=== PATIENT | female | born 1960 | race Caucasian/White ===

== ENCOUNTER 2018-06-08 15:37 | Emergency (ER) | payer MEDICARE, MEDICAID ==
[~2018-06-08] VITALS: Ht 167.6 cm; Wt 81.8 kg
[~2018-06-08 15:37] MED LIST: ALPR-624 PO; ASPI-529 PO; CHLO25CA10 PO; CIME800T PO; DIPH-423 PO; FLUO20CA39 PO; LAMO5TAB3 PO; METO100T7 PO; ONDA4TAB6 PO; RISP0.5T74 PO
[2018-06-08] MEDS ORDERED: ketorolac trometh. 30mg/ml inj. IV ONE (17:30)
[2018-06-08] MEDS ORDERED: normal saline 1000ML IV soln IVB ONE (17:30)
[2018-06-08] MEDS ORDERED: dexamethasone sod phosphate 10mg/ml inj IV STA (17:30)
[2018-06-08] MEDS ORDERED: LORazepam 2 mg/ml vial IV ONE (17:30)
[2018-06-08] MEDS ORDERED: metoclopramide 5 mg/ml inj IV ONE (17:30)
[2018-06-08 18:25] VITALS: BP 123/74
[2018-06-08] MEDS ORDERED: SUMA100T PO (18:25)
== END 2018-06-08 18:28 | disposition home or self-care (01) ==
LOC: ER 15:37
DX: G43.909 Migraine, unspecified, not intractable, without status migrainosus (principal); F12.90 Cannabis use, unspecified, uncomplicated; F15.90 Other stimulant use, unspecified, uncomplicated; F11.90 Opioid use, unspecified, uncomplicated; F14.90 Cocaine use, unspecified, uncomplicated; Z88.5 Allergy status to narcotic agent; Z79.82 Long term (current) use of aspirin; Z79.899 Other long term (current) drug therapy
CPT/HCPCS: 96374; 96375; 99284; J1100; J1885; J2060; J2765; J7030

== ENCOUNTER 2020-12-15 15:01 | Emergency (ER) | payer MEDICARE, MEDICAID ==
[~2020-12-15] VITALS: Ht 167.6 cm; Wt 84.7 kg
[2020-12-15 15:34] VITALS: BP 115/71
[2020-12-15] MEDS ORDERED: ketorolac tromethamine 15mg/ml inj. IM ONE (16:25)
[2020-12-15] MEDS ORDERED: amox tr/potassium clavulanate 875/125mg TAB PO ONE (16:25)
[2020-12-15] MEDS ORDERED: AMOX-117 PO (16:26)
[2020-12-15] MEDS ORDERED: TETanus/Pertussis (Acell)/Diphther VAC/PF (Tdap-Adult) 0.5ml syringe IMVAC ONE (16:45)
== END 2020-12-15 17:18 | disposition home or self-care (01) ==
LOC: ER 15:02
DX: S51.832A Puncture wound without foreign body of left forearm, initial encounter (principal); F12.90 Cannabis use, unspecified, uncomplicated; F15.90 Other stimulant use, unspecified, uncomplicated; F11.90 Opioid use, unspecified, uncomplicated; F17.200 Nicotine dependence, unspecified, uncomplicated; Z87.440 Personal history of urinary (tract) infections; Z86.19 Personal history of other infectious and parasitic diseases; Z72.89 Other problems related to lifestyle; W55.01XA Bitten by cat, initial encounter; Y93.89 Activity, other specified; Y92.89 Other specified places as the place of occurrence of the external cause; Y99.8 Other external cause status
CPT/HCPCS: 90471; 90715; 96372; 99284; J1885

== ENCOUNTER 2023-06-03 13:42 | Emergency (ER) | payer MEDICARE, MEDICAID ==
[~2023-06-03] VITALS: Ht 167.6 cm; Wt 79.0 kg
[2023-06-03 14:05] VITALS: TEMP 97.6
[2023-06-03] MEDS ORDERED: bupivacaine 0.25%/epinephrine 1:200,000 inj (contains preserv. MDV) IJ ONE (15:05)
[2023-06-03] MEDS ORDERED: BUPIVAcaine 0.5% W/EPI /PF 30ml vial IJ ONE (15:15)
[2023-06-03] MEDS ORDERED: morphine 2 MG/ML inj. syringe IM ONE (15:25)
[2023-06-03] MEDS ORDERED: ondansetron 4mg rapidly disintigrating tab PO ONE (15:25)
[2023-06-03] MEDS ORDERED: PER5325T PO (16:29)
[2023-06-03 16:55] VITALS: BP 126/82; PULSE 70; RESP 18; O2SAT 98
== END 2023-06-03 20:00 | disposition home or self-care (01) ==
LOC: ER 13:42
DX: S52.592A Other fractures of lower end of left radius, initial encounter for closed fracture (principal); S52.612A Displaced fracture of left ulna styloid process, initial encounter for closed fracture; W18.39XA Other fall on same level, initial encounter; Y93.89 Activity, other specified; Y92.89 Other specified places as the place of occurrence of the external cause; Y99.8 Other external cause status
CPT/HCPCS: 25605; 73090; 73100; 73110; 96372; 99284; J2270

== ENCOUNTER 2023-06-14 08:57 | Day surgery (SDC) | payer MEDICARE, MEDICAID ==
[2023-06-11 14:43] LABS: BASOPHILS % (AUTO) 0.6 % (0-1); EOSINOPHILS # (AUTO) 0.1 X10'3 (0-0.9); EOSINOPHILS % (AUTO) 1.4 % (0-6); HEMATOCRIT 45.1 % (35.0-45.0); HEMOGLOBIN 14.8 g/dl (12.0-16.0); LYMPHOCYTES % (AUTO) 23.6 % (21-51); MEAN CORPUSCULAR HEMOGLOBIN 30.2 PG (27.0-31.0); MEAN CORPUSCULAR HGB CONC 32.9 g/dL (33.0-36.5); MEAN CORPUSCULAR VOLUME 91.7 FL (78-98); MEAN PLATELET VOLUME 7.5 FL (7.4-10.4); MONOCYTES # (AUTO) 0.6 X10'3 (0-0.9); MONOCYTES % (AUTO) 7.2 % (2-12); NEUTROPHILS # (AUTO) 5.7 X10'3 (1.8-7.7); NEUTROPHILS % (AUTO) 67.2 % (42-75); PLATELET COUNT 318 X10'3 (140-440); RED BLOOD COUNT 4.91 X10'6 (4.20-5.60); RED CELL DISTRIBUTION WIDTH 13.9 % (11.5-14.5); WHITE BLOOD COUNT 8.5 X10'3 (4.5-11.0)
[2023-06-11 15:02] LABS: ALANINE AMINOTRANSFERASE 15 U/L (12-78); ALBUMIN 4.1 G/DL (3.4-5.0); ALBUMIN/GLOBULIN RATIO 1.2 (1.1-1.5); ALKALINE PHOSPHATASE 78 IU/L (46-116); ANION GAP 11 (8-16); ASPARTATE AMINO TRANSFERASE 17 U/L (10-37); BILIRUBIN,TOTAL 0.5 MG/DL (0.1-1.0); BLOOD UREA NITROGEN 19 MG/DL (7-18); BUN/CREATININE RATIO 16.1 (10.0-20.0); CALCIUM 9.7 MG/DL (8.5-10.1); CHLORIDE 107 MMOL/L (99-107); CREATININE 1.18 MG/DL (0.40-0.90); GLUCOSE 94 MG/DL (70-104); POTASSIUM 4.2 MMOL/L (3.5-5.1); SODIUM 138 MMOL/L (135-145); TOTAL CARBON DIOXIDE 19.7 MMOL/L (24-32); TOTAL PROTEIN 7.6 G/DL (6.4-8.2); eGFR 46 ML/MIN
[~2023-06-14] VITALS: Ht 167.6 cm; Wt 81.4 kg
[2023-06-14] VITALS (14 sets, daily range): BP systolic 99–127; BP diastolic 53–80; PULSE 54–69; RESP 11–18; TEMP 98.1; O2SAT 94–99
[~2023-06-14 08:57] MED LIST changes: -ALPR-624 PO; -ASPI-529 PO; +CELE-193 PO; -CHLO25CA10 PO; -CIME800T PO; -DIPH-423 PO; +FEXO-353 PO; -METO100T7 PO; -ONDA4TAB6 PO; -RISP0.5T74 PO; +TOP100T PO; +albuterol 2.5 MG/3 ML nebule NEB ONE; +cefazolin 2gm/D5W 100mL 100 ML IV ONE; +famotidine 20mg tablet PO ONE; +ringers solution, lacted 1,000 ML IV SCH
[2023-06-14] MEDS ORDERED: BUPIVAcaine/PF 2.5mg/ml (0.25%) 10ml vial ONE (09:15)
[2023-06-14] MEDS ORDERED: cloNIDine hcl/PF 100mcg/ml inj ONE (10:11)
[2023-06-14] MEDS ORDERED: morphine 4 MG/ML inj SYRINge IV PRN (10:15)
[2023-06-14] MEDS ORDERED: ondansetron/PF 4mg/2ml inj IV PRN (10:15)
[2023-06-14] MEDS ORDERED: labetalol 20mg/4ml (5mg/ml) syringe IV PRN (10:15)
[2023-06-14] MEDS ORDERED: hydrALAZINE 20mg/ml inj. IV PRN (10:15)
[2023-06-14] MEDS ORDERED: acetaminophen 1,000mg/100ml IV 100 ML IV ONE (10:15)
[2023-06-14] MEDS ORDERED: proCHLORperazine 10 MG/2 ml inj IV PRN (10:15)
[2023-06-14] MEDS ORDERED: ringers solution, lacted 1,000 ML IV SCH (10:15)
[2023-06-14] MEDS ORDERED: meperidine/PF 25mg/ml syringe IV PRN (10:15)
[2023-06-14] MEDS ORDERED: morphine 2 MG/ML inj. syringe IV PRN (10:15)
[2023-06-14] MEDS ORDERED: ketorolac trometh. 30mg/ml inj. IV ONE (10:15)
[2023-06-14] MEDS ORDERED: HYDROmorphone/PF 0.2 MG/ML SYRINGE IV PRN ×2 (10:15)
[2023-06-14] MEDS ORDERED: midazolam 1 mg/ML 2ml injection ONE (10:17)
[2023-06-14] MEDS ORDERED: fentaNYL/PF 50MCG/1 ML 2ML syringe ONE (10:20)
[2023-06-14] MEDS ORDERED: sevoflurane 250ml liquid IH ONE (10:28)
[2023-06-14] MEDS ORDERED: dexamethasone sod phosphate 4mg/ml inj. ONE (11:10)
[2023-06-14] MEDS ORDERED: ondansetron/PF 4mg/2ml inj ONE (11:10)
[2023-06-14] MEDS ORDERED: propofol inj 20 ML IV ONE (11:10)
[2023-06-14] MEDS ORDERED: LIDOcaine 2% (20mg/ml) 5ml vial ONE (11:10)
[2023-06-14] MEDS ORDERED: ROPIVAcaine 0.5% (5mg/ml) 30ml vial ONE (11:10)
== END 2023-06-14 14:02 | disposition home or self-care (01) ==
LOC: PAS 08:57
PROVIDERS: ATTEND Orthopaedic Surgery Hand Surgery
DX: S52.572A Other intraarticular fracture of lower end of left radius, initial encounter for closed fracture (principal); F31.9 Bipolar disorder, unspecified; G43.909 Migraine, unspecified, not intractable, without status migrainosus; F41.9 Anxiety disorder, unspecified; F17.210 Nicotine dependence, cigarettes, uncomplicated; G89.18 Other acute postprocedural pain; Z88.8 Allergy status to other drugs, medicaments and biological substances; Z79.899 Other long term (current) drug therapy; Z98.890 Other specified postprocedural states; Z86.19 Personal history of other infectious and parasitic diseases; Z85.828 Personal history of other malignant neoplasm of skin; Z83.3 Family history of diabetes mellitus; W19.XXXA Unspecified fall, initial encounter; Y93.89 Activity, other specified; Y92.098 Other place in other non-institutional residence as the place of occurrence of the external cause; Y99.8 Other external cause status
CPT/HCPCS: 25609; 36415; 64417; 80053; 82948; 85025; 93005; C1713; J0690; J0735; J1100; J2250; J2405; J2704; J2795; J3010; J3490; J7030; J7120; Z7506; Z7508; Z7512; A4215; A4565; A4618; A6449; A7000

== ENCOUNTER 2023-08-08 15:23 | Emergency (ER) | payer MEDICARE, MEDICAID ==
[~2023-08-08] VITALS: Ht 167.6 cm; Wt 79.3 kg
[~2023-08-08 15:23] MED LIST changes: -albuterol 2.5 MG/3 ML nebule NEB ONE; -cefazolin 2gm/D5W 100mL 100 ML IV ONE; -famotidine 20mg tablet PO ONE; -ringers solution, lacted 1,000 ML IV SCH
[2023-08-08 15:50] VITALS: TEMP 99.3
[2023-08-08] MEDS: normal saline 1000ml 1,000 ML IV ONE (19:04)
[2023-08-08] MEDS: ondansetron/PF 4mg/2ml inj IV ONE (19:04)
[2023-08-08] MEDS: LIDOcaine 1% W/epiNEPHrine 1:100,000 20ml vial SQ ONE (19:06)
[2023-08-08] MEDS: SUMAtriptan 25 MG tablet PO ONE ×2 (19:06→22:42)
[2023-08-08 19:51] LABS: BASOPHILS % (AUTO) 0.2 % (0-1); EOSINOPHILS % (AUTO) 0.1 % (0-6); HEMATOCRIT 39.5 % (35.0-45.0); HEMOGLOBIN 13.5 g/dl (12.0-16.0); LYMPHOCYTES # (AUTO) 0.6 X10'3 (1.1-4.8); LYMPHOCYTES % (AUTO) 3.4 % (21-51); MEAN CORPUSCULAR HEMOGLOBIN 31.2 PG (27.0-31.0); MEAN CORPUSCULAR HGB CONC 34.1 g/dL (33.0-36.5); MEAN CORPUSCULAR VOLUME 91.4 FL (78-98); MEAN PLATELET VOLUME 7.8 FL (7.4-10.4); MONOCYTES # (AUTO) 0.9 X10'3 (0-0.9); MONOCYTES % (AUTO) 4.6 % (2-12); NEUTROPHILS # (AUTO) 17.3 X10'3 (1.8-7.7); NEUTROPHILS % (AUTO) 91.7 % (42-75); PLATELET COUNT 267 X10'3 (140-440); RED BLOOD COUNT 4.32 X10'6 (4.20-5.60); RED CELL DISTRIBUTION WIDTH 13.8 % (11.5-14.5); WHITE BLOOD COUNT 18.9 X10'3 (4.5-11.0)
[2023-08-08 19:59] LABS: ALBUMIN 3.1 G/DL (3.4-5.0); ANION GAP 12 (8-16); BLOOD UREA NITROGEN 18 MG/DL (7-18); BUN/CREATININE RATIO 20.5 (10.0-20.0); CALCIUM 9.1 MG/DL (8.5-10.1); CHLORIDE 107 MMOL/L (99-107); CREATININE 0.88 MG/DL (0.40-0.90); GLUCOSE 132 MG/DL (70-104); LIPASE 46 U/L (16-77); POTASSIUM 3.8 MMOL/L (3.5-5.1); SODIUM 140 MMOL/L (135-145); TOTAL CARBON DIOXIDE 20.7 MMOL/L (24-32); eCRCL 62 ML/MIN; eGFR 65 ML/MIN
[2023-08-08] MEDS: amox tr/potassium clavulanate 875/125mg TAB PO ONE (23:03)
[2023-08-08 23:18] LABS: BILIRUBIN,URINE NEGATIVE (Neg); CLARITY,URINE CLEAR (Clear); COLOR,URINE YELLOW (Yellow); GLUCOSE, URINE NEGATIVE (Neg); KETONES,URINE TRACE mg/dl (Neg); LEUKOCYTE ESTERASE ,URINE NEGATIVE (Neg); NITRITES, URINE NEGATIVE (Neg); OCCULT BLOOD,URINE TRACE-INTACT (Neg); PROTEIN,URINE NEGATIVE (Neg); UROBILINOGEN,URINE 0.2 E.U/dL (0.2-1.0)
[2023-08-08 23:27] LABS: UA COLLECTION TYPE CLN CATCH MIDSTREAM
[2023-08-08 23:34] LABS: BACTERIA,URINE NONE SEEN /HPF (Neg); MUCUS STRANDS NONE SEEN /LPF (Neg); RBC,URINE 0-2 /HPF (0-2); SQUAMOUS EPITHELIAL CELL,UR FEW /LPF (FEW); STARCH,URINE FEW /HPF (NEGATIVE); WBC,URINE 0-4 /HPF (0-4)
[2023-08-08] MEDS ORDERED: AMOX-117 PO (23:38)
[2023-08-08] MEDS ORDERED: DOXY-457 PO (23:38)
[2023-08-09 00:12] VITALS: BP 122/76; PULSE 73; RESP 16; O2SAT 99
== END 2023-08-09 00:15 | disposition home or self-care (01) ==
LOC: ER 15:24
DX: L02.31 Cutaneous abscess of buttock (principal); L03.317 Cellulitis of buttock; L03.314 Cellulitis of groin; F31.9 Bipolar disorder, unspecified; F12.90 Cannabis use, unspecified, uncomplicated; F15.90 Other stimulant use, unspecified, uncomplicated; Z88.8 Allergy status to other drugs, medicaments and biological substances; Z79.2 Long term (current) use of antibiotics; Z79.899 Other long term (current) drug therapy
CPT/HCPCS: 36415; 71045; 80048; 81001; 83605; 83690; 85025; 87040; 96361; 96374; 99284; J2405; J7030; C1758

== ENCOUNTER 2024-01-16 11:26 | Emergency (ER) | payer MEDICARE, MEDICAID ==
[~2024-01-16] VITALS: Ht 167.6 cm; Wt 75.0 kg
[2024-01-16 12:31] LABS: BILIRUBIN,URINE NEGATIVE (Neg); CLARITY,URINE CLOUDY (Clear); COLOR,URINE YELLOW (Yellow); GLUCOSE, URINE NEGATIVE (Neg); KETONES,URINE NEGATIVE (Neg); LEUKOCYTE ESTERASE ,URINE LARGE (Neg); NITRITES, URINE NEGATIVE (Neg); OCCULT BLOOD,URINE TRACE-INTACT (Neg); PROTEIN,URINE NEGATIVE (Neg); UROBILINOGEN,URINE 0.2 E.U/dL (0.2-1.0)
[2024-01-16 12:38] LABS: UA COLLECTION TYPE CLN CATCH MIDSTREAM
[2024-01-16 12:39] LABS: BACTERIA,URINE 2+ /HPF (Neg); RBC,URINE 0-2 /HPF (0-2); SQUAMOUS EPITHELIAL CELL,UR FEW /LPF (FEW)
[2024-01-16] MEDS ORDERED: CEPH-585 PO (12:58)
[2024-01-16] MEDS ORDERED: NIRM1TAB9 PO (12:58)
[2024-01-16 13:01] VITALS: BP 134/83; PULSE 87; RESP 18; TEMP 98.7; O2SAT 98
== END 2024-01-16 13:04 | disposition home or self-care (01) ==
LOC: ER 11:26
DX: U07.1 COVID-19 (principal); N39.0 Urinary tract infection, site not specified; F41.9 Anxiety disorder, unspecified; F32.A Depression, unspecified; F15.90 Other stimulant use, unspecified, uncomplicated; F14.90 Cocaine use, unspecified, uncomplicated; F10.10 Alcohol abuse, uncomplicated; Z88.8 Allergy status to other drugs, medicaments and biological substances; Z79.899 Other long term (current) drug therapy
CPT/HCPCS: 81001; 87077; 87088; 87186; 99283

== ENCOUNTER 2024-08-23 18:13 | Emergency (ER) | payer MEDICARE, MEDICAID ==
[~2024-08-23] VITALS: Ht 167.6 cm; Wt 76.2 kg
[~2024-08-23 18:13] MED LIST changes: +CEPH-585 PO; +NIRM1TAB9 PO
[2024-08-23 18:20] VITALS: BP 125/92; PULSE 71; RESP 18; O2SAT 98
[2024-08-23] MEDS: TETanus/Pertussis (Acell)/Diphther VAC/PF (Tdap-Adult) 0.5ml syringe IMVAC ONE (19:00)
[2024-08-23] MEDS ORDERED: AMOX-117 PO (19:01)
[2024-08-23 19:05] VITALS: TEMP 97.8
[2024-08-23] MEDS: amox tr/potassium clavulanate 875/125mg TAB PO ONE (19:08)
== END 2024-08-23 19:12 | disposition home or self-care (01) ==
LOC: ER 18:13
DX: S61.250A Open bite of right index finger without damage to nail, initial encounter (principal); F31.9 Bipolar disorder, unspecified; F12.90 Cannabis use, unspecified, uncomplicated; F15.90 Other stimulant use, unspecified, uncomplicated; F14.90 Cocaine use, unspecified, uncomplicated; Z88.5 Allergy status to narcotic agent; F41.9 Anxiety disorder, unspecified; W55.01XA Bitten by cat, initial encounter; Y93.89 Activity, other specified; Y92.89 Other specified places as the place of occurrence of the external cause; Y99.8 Other external cause status
CPT/HCPCS: 90715; 99284; G0008; 90471

== ENCOUNTER 2024-09-19 09:06 | Emergency (ER) | payer MEDICARE, MEDICAID ==
[~2024-09-19] VITALS: Ht 167.6 cm; Wt 77.3 kg
[2024-09-19] MEDS: SUMAtriptan succ. 6 MG/0.5ml vial SQ ONE (11:06)
[2024-09-19] MEDS ORDERED: HYDR-3965 PO (11:07)
[2024-09-19 11:31] VITALS: BP 118/70; PULSE 60; RESP 18; TEMP 97; O2SAT 95
== END 2024-09-19 11:34 | disposition home or self-care (01) ==
LOC: ER 09:07
DX: G43.909 Migraine, unspecified, not intractable, without status migrainosus (principal); K08.89 Other specified disorders of teeth and supporting structures; F41.9 Anxiety disorder, unspecified; F31.9 Bipolar disorder, unspecified; F12.90 Cannabis use, unspecified, uncomplicated; F15.90 Other stimulant use, unspecified, uncomplicated; F14.90 Cocaine use, unspecified, uncomplicated; F11.90 Opioid use, unspecified, uncomplicated; Z88.5 Allergy status to narcotic agent
CPT/HCPCS: 96372; 99284; J3030

== ENCOUNTER 2024-11-10 11:36 | Emergency (ER) | payer MEDICARE, MEDICAID ==
[~2024-11-10] VITALS: Ht 167.6 cm; Wt 73.9 kg
--- NOTE | 2024-11-10 13:29 | RADIOLOGY REPORT ---
CLINICAL INDICATION: FOOT PAIN TECHNIQUE: 3 radiographic views of the right foot were obtained. Comparison: DI WRIST, COMPLETE (3VW MIN) on DOS: 06/03/23 FINDINGS/IMPRESSION: There is no evidence of acute fracture or dislocation. The visualized joint space is well maintained. The alignment is anatomical. There is no radiopaque foreign body.
--- NOTE | 2024-11-10 13:34 | RADIOLOGY REPORT ---
CT CT HEAD Indication: FALL EXAM DATE: 11/10/2024 12:10 PM COMPARISON: None TECHNIQUE: CT of the head without intravenous contrast. RADIATION DOSE: CTDIvol: 51 mGy, DLP: 85 mGy*cm FINDINGS: There is no intracranial hemorrhage. There is no extra-axial fluid, mass, mass effect or midline shif t. The ventricles are midline and normal in size. Basilar cisterns are patent. Mild periventricular a nd subcortical white matter chronic microvascular ischemic changes. The paranasal sinuses and mastoids are well-pneumatized. Imaged portion of the orbits are unremarkabl e. IMPRESSION: 1. No intracranial hemorrhage or mass effect.
--- NOTE | 2024-11-10 13:36 | RADIOLOGY REPORT ---
Indication: KNEE PAIN Technique: 3 views right knee Comparison: None FINDINGS/IMPRESSION: No radiographic evidence for acute fracture or dislocation. No significant soft tissue edema. No rad iopaque foreign body. Mild tricompartmental degenerative joint disease most pronounced in the medial compartment. Small suprapatellar effusion.
--- NOTE | 2024-11-10 14:14 | RADIOLOGY REPORT ---
EXAM: CT CT CERVICAL SPINE HISTORY: FALL, trauma, neck pain COMPARISON: None CTDIvol 20.1 mGy, DLP 454.2 mGy*cm. TECHNIQUE: Multiple axial CT images of the spine were obtained using bone algorithm. Axial and chapin l reformatting was done. Bone and soft tissue windows were reviewed. FINDINGS: No evidence of definite acute fracture, spinal dislocation, or significant appearing acute subluxatio n is seen. Degenerative changes of the spine. IMPRESSION: No definite CT evidence of acute fracture or dislocation of the bony cervical spine.
[2024-11-10 14:49] VITALS: BP 116/81; PULSE 60; RESP 15; O2SAT 97
--- NOTE | 2024-11-10 14:54 | Physician Documentation ---
History of Present Illness ~ Chief Complaint: See Chief Complaint Stated Complaint: FALL NO THINNERS Time Seen by MD: 14:01 Primary Medical Doctor: jillian Mode of Arrival: POV HPI 64-year-old female presents to the ED with a complaint of having a bad dream. She states that while in her dream, she hit her head and injured her right lower extremity.. Denies any blood thinners. Tetanus Within 5 Years: Yes Medication Reconciliation Allergies: Coded Allergies: meperidine (Verified Allergy, Unknown, HIVES, 11/10/24) Scheduled Celecoxib* (Celebrex*), 100 MG PO DAILY, (Reported) Cephalexin*Monohydrate* (Keflex*), 1 CAP PO TID Fexofenadine Hcl* (Kaia*), 100 MG PO DAILY, (Reported) Fluoxetine Hcl* (Prozac*), 80 MG PO QAM, (Reported) Lamotrigine* (Lamictal*), 200 MG PO DAILY, (Reported) Nirmatrelvir/Ritonavir (Paxlovid 300-100 mg Dose Pack), 1 TAB PO BID Topiramate (Topamax), 125 MG PO DAILY, (Reported) Past Medical History Past Medical History: Migraine, Hepatitis C, UTI, Anxiety, Bipolar, Depression Past Surgical History: noncontributory Alcohol Use: Abuse Drug Use: marijuana, methamphetamine, cocaine, heroin Physical Exam Vital Signs: Heart Rate: 79, Respiratory Rate: 16, BP: 138/77, Pulse Oximetry: 96, Weight: 73.900 Oxygen Flow Rate: 0 Physical Exam General: Alert, no apparent distress. HEENT: PERRL, EOMI, no injection, moist mucous membranes. Notable hematoma on the forehead with developing no ecchymosis Neck: Full range of motion. Respiratory: Lungs clear, no respiratory distre Extremities: Normal range of motion, no deformity. Mild swelling in the right prepatellar Neurologic: Oriented x4. Psychiatric: Normal mood and affect. Skin: Normal color, warm and dry. No edema, no ecchymosis. Progress Results/Orders Results/Orders Vital Signs 11/10/24 11/10/24 11:45 14:21 Pulse 79 Resp 16 B/P (MAP) 138/77 Pulse Ox 96 O2 Flow Rate 0 Medical Decision Making Findings CT findings did not indicate any signs of intracranial processes. X-rays made no note of fracture per my interpretation. I did offer the patient hospitalization for pain management, she declined. I Differential Dx:Considerations: Include: Abrasion, Contusion, Cerebral con tusion, Cervical spine injury, Closed head injury, Encephalopathy, Foreign body, Fracture, facial, Intoxication-alcohol, Intoxication-other drug, Laceration, Other Departure Disposition: HOME / SELF CARE / HOMELESS Impression: Primary Impression: Head injury Additional Impression: Lower extremity injury Condition: Stable Discharge Instructions: Acute Knee Pain, Adult, [id number], Head Injury, Adult, [id number] Referrals: NO PRIMARY CARE PROVIDER (PCP) Education Educated: Patient Educated regarding: diagnosis Signature Scribe Signature: d Attestation: Scribed for Alli Jeffery Office Rep by Alli Donovan NP . 11/10/24 14:52 ALLI JEFFERY NP Nov 10, 2024 14:54
== END 2024-11-10 15:35 | disposition home or self-care (01) ==
LOC: ER 11:36
DX: S00.83XA Contusion of other part of head, initial encounter (principal); S89.91XA Unspecified injury of right lower leg, initial encounter; F31.9 Bipolar disorder, unspecified; F41.9 Anxiety disorder, unspecified; F12.90 Cannabis use, unspecified, uncomplicated; F32.A Depression, unspecified; F15.90 Other stimulant use, unspecified, uncomplicated; F11.90 Opioid use, unspecified, uncomplicated; F14.90 Cocaine use, unspecified, uncomplicated; Z88.5 Allergy status to narcotic agent; X58.XXXA Exposure to other specified factors, initial encounter; Y93.89 Activity, other specified; Y92.89 Other specified places as the place of occurrence of the external cause; Y99.8 Other external cause status
CPT/HCPCS: 70450; 72125; 73564; 73630; 99284